=== PATIENT | female | born 1980 | race Two or more races ===

== ENCOUNTER → 2020-01-22 | Outpatient (CLI) | payer OTHER ==
[~2020-01-22] MED LIST: FOLIC ACID0.4 MG PO; LEVOTHYROXINE50 MCG PO; PRENATAL CAPLE1 EACH PO; VALTREX1000 MG PO; VITAMIN D400 UNI2 PO
== END | disposition home or self-care (01) ==
LOC: PRENATAL 15:20
DX: O99.89 Other specified diseases and conditions complicating pregnancy, childbirth and the puerperium (principal); O09.522 Supervision of elderly multigravida, second trimester; O35.3XX1 Maternal care for (suspected) damage to fetus from viral disease in mother, fetus 1

== ENCOUNTER 2020-05-28 07:14 | Inpatient (IN) | payer OTHER ==
[~2020-05-28] VITALS: Ht 152.4 cm; Wt 64.9 kg
== END 2020-05-30 12:42 | disposition home or self-care (01) | DRG 807 ==
LOC: OBS/DEL 07:14 → LDR 13:33 → OB/GYN 16:52
PROVIDERS: ADMIT Obstetrics & Gynecology; ATTEND Obstetrics & Gynecology
PROC: 10E0XZZ Delivery of Products of Conception, External Approach (ICD-10-PCS; principal; 2020-05-28)
PROC: 0KQM0ZZ Repair Perineum Muscle, Open Approach (ICD-10-PCS; 2020-05-28)
PROC: 4A1HXCZ Monitoring of Products of Conception, Cardiac Rate, External Approach (ICD-10-PCS; 2020-05-28)
DX: O70.1 Second degree perineal laceration during delivery (principal); Z37.0 Single live birth; Z3A.38 38 weeks gestation of pregnancy